=== PATIENT | female | born 1945 | race Caucasian/White ===

== ENCOUNTER → 2016-10-15 | Outpatient (CLI) | payer MEDICARE, BC ==
[2016-10-15 10:17] LABS: HIV 1/2 Antibodies Non-Reactive; HIV-1p24 Antigen Non-Reactive
== END ==
LOC: COL.LAB 09:09
PROVIDERS: Orthopaedic Surgery
DX: Z01.812 Encounter for preprocedural laboratory examination (principal); M17.12 Unilateral primary osteoarthritis, left knee

== ENCOUNTER 2016-10-20 08:51 | Outpatient (RCR) | payer MEDICARE, BC | END 2016-10-22 08:25 | LOC: MKS.ESL.PT 08:51 | DX: Z01.818 Encounter for other preprocedural examination (principal); M17.12 Unilateral primary osteoarthritis, left knee | CPT/HCPCS: G8978-GP; G8979-GP; G8980-GP ==

== ENCOUNTER 2016-12-18 10:30 | Outpatient (RCR) | payer MEDICARE, BC | END 2017-01-25 | LOC: MKS.ESL.PT | DX: Z96.652 Presence of left artificial knee joint (principal) | CPT/HCPCS: G0283-GP; G8978-GP; G8979-GP; G8980-GP ==

== ENCOUNTER → 2017-06-01 | Outpatient (CLI) | payer MEDICARE, BC ==
[2017-06-01 14:38] LABS: CHOLESTEROL RISK RATIO 4.6
== END ==
LOC: COL.LAB 09:35
PROVIDERS: Family Medicine
DX: E78.5 Hyperlipidemia, unspecified (principal)

== ENCOUNTER 2017-07-23 08:45 | Outpatient (RCR) | payer MEDICARE, BC | END 2017-07-23 10:11 | disposition home or self-care (01) | LOC: MKS.ESL.PT 08:45 | DX: M25.511 Pain in right shoulder (principal) | CPT/HCPCS: G8990-GP; G8991-GP; G8992-GP ==

== ENCOUNTER → 2017-08-11 | Outpatient (CLI) | payer MEDICARE, BC ==
[2017-08-11 15:41] LABS: BASO # 0.1 (0.0-0.2); BASO % 0.7 % (0.0-2.0); EOS # 0.3 (0.0-0.7); GRAN # 5.6 (1.4-6.5); GRAN % 69.3 % (42.2-75.2); LYMPH # 1.4 (1.2-3.4); LYMPH % 17.3 % (20.0-51.0); MEAN CELL VOLUME 87 fl (80.0-100.0); MEAN CORPUSCULAR HEMOGLOBIN 29 pg (27.0-31.0); MEAN CORPUSCULAR HGB CONC 34 g/dl (33.0-37.0); MEAN PLATELET VOLUME 10.5 fl (7.4-10.4); MONO # 0.7 (0.1-0.6); MONO % 8.3 % (1.7-9.3); PLATELET COUNT 308 K/mm3 (130-400); RED BLOOD COUNT 3.75 M/mm3 (4.10-5.30); REDCELL DISTRIBUTION WIDTH-CV 13.9 % (11.5-14.5)
[2017-08-11 15:44] LABS: HEMATOCRIT 32.6 % (37.0-47.0)
[2017-08-11 15:52] LABS: CALCIUM 9.8 mg/dL (8.4-10.2); CREATININE, serum 1.12 mg/dL (0.52-1.25); POTASSIUM 4.5 mmol/L (3.4-5.0)
[2017-08-11 16:22] LABS: TSH w REFLEX 1.16 uIU/mL (0.465-4.680)
== END ==
LOC: COL.LAB 09:33
PROVIDERS: Family Medicine
DX: M79.1 Myalgia (principal); R53.83 Other fatigue

== ENCOUNTER → 2017-08-24 | Outpatient (CLI) | payer MEDICARE, BC | LOC: COL.LAB 09:22 | DX: D64.9 Anemia, unspecified (principal) ==

== ENCOUNTER → 2017-10-22 | Outpatient (CLI) | payer MEDICARE, BC ==
[2017-10-22 18:53] LABS: BASO # 0.1 (0.0-0.2); EOS # 0.3 (0.0-0.7); EOS % 3.8 % (0-4.0); GRAN # 5.6 (1.4-6.5); GRAN % 66.8 % (42.2-75.2); HEMOGLOBIN 10.6 g/dl (12.5-16.0); LYMPH # 1.7 (1.2-3.4); LYMPH % 20.1 % (20.0-51.0); MEAN CELL VOLUME 87 fl (80.0-100.0); MEAN CORPUSCULAR HEMOGLOBIN 30 pg (27.0-31.0); MEAN CORPUSCULAR HGB CONC 34 g/dl (33.0-37.0); MEAN PLATELET VOLUME 10.4 fl (7.4-10.4); MONO # 0.6 (0.1-0.6); MONO % 7.7 % (1.7-9.3); PLATELET COUNT 308 K/mm3 (130-400); RED BLOOD COUNT 3.59 M/mm3 (4.10-5.30); REDCELL DISTRIBUTION WIDTH-CV 13.7 % (11.5-14.5)
[2017-10-22 18:54] LABS: HEMATOCRIT 31.3 % (37.0-47.0)
== END ==
LOC: COL.LAB 16:03
PROVIDERS: Family Medicine
DX: R53.83 Other fatigue (principal)

== ENCOUNTER → 2017-11-18 | Outpatient (CLI) | payer MEDICARE, BC ==
[2017-11-18 17:52] LABS: CALCIUM 9.5 mg/dL (8.4-10.2); CREATININE, serum 1.18 mg/dL (0.52-1.25); POTASSIUM 3.7 mmol/L (3.4-5.0)
== END ==
LOC: COL.LAB 15:49
PROVIDERS: Family Medicine
DX: R79.89 Other specified abnormal findings of blood chemistry (principal)

== ENCOUNTER 2018-09-03 20:19 | Emergency (ER) | payer MEDICARE, BC ==
[~2018-09-03] VITALS: Ht 157.5 cm; Wt 85.9 kg
[2018-09-03 20:29] VITALS: TEMP 97.1
[2018-09-03] MEDS ORDERED: WALKER MC (22:09)
[2018-09-03 22:39] VITALS: BP 126/81; PULSE 60
== END 2018-09-03 22:39 | disposition home or self-care (01) ==
LOC: COL.ER 20:19
DX: S76.301A Unspecified injury of muscle, fascia and tendon of the posterior muscle group at thigh level, right thigh, initial encounter (principal); Z96.652 Presence of left artificial knee joint; W22.8XXA Striking against or struck by other objects, initial encounter; Y93.01 Activity, walking, marching and hiking; Y92.009 Unspecified place in unspecified non-institutional (private) residence as the place of occurrence of the external cause

== ENCOUNTER → 2018-09-27 | Outpatient (CLI) | payer MEDICARE, BC ==
[~2018-09-27] MED LIST: WALKER MC
[2018-09-27 18:38] LABS: BASO # 0.1 (0.0-0.2); BASO % 0.8 % (0.0-2.0); EOS # 0.3 (0.0-0.7); EOS % 3.8 % (0-4.0); GRAN # 4.9 (1.4-6.5); GRAN % 63.9 % (42.2-75.2); HEMOGLOBIN 11.3 g/dl (12.5-16.0); LYMPH # 1.7 (1.2-3.4); LYMPH % 22.3 % (20.0-51.0); MEAN CELL VOLUME 88 fl (80.0-100.0); MEAN CORPUSCULAR HEMOGLOBIN 29 pg (27.0-31.0); MEAN CORPUSCULAR HGB CONC 33 g/dl (33.0-37.0); MEAN PLATELET VOLUME 10.5 fl (7.4-10.4); MONO # 0.7 (0.1-0.6); MONO % 8.7 % (1.7-9.3); PLATELET COUNT 290 K/mm3 (130-400); RED BLOOD COUNT 3.85 M/mm3 (4.10-5.30); REDCELL DISTRIBUTION WIDTH-CV 13.7 % (11.5-14.5)
[2018-09-27 18:45] LABS: HEMATOCRIT 33.9 % (37.0-47.0)
[2018-09-27 18:46] LABS: ALBUMIN 4.3 gm/dL (3.5-5.0); BILIRUBIN,TOTAL 1.2 mg/dL (0.0-1.0); CALCIUM 10.6 mg/dL (8.4-10.2); CHOLESTEROL RISK RATIO 4.1; CREATININE, serum 1.14 (0.52-1.25); POTASSIUM 4.1 mmol/L (3.4-5.0); TOTAL PROTEIN 7.6 gm/dL (6.4-8.2)
[2018-09-27 19:16] LABS: THYROID STIMULATING HORMONE 0.805 uIU/mL (0.465-4.680)
== END ==
LOC: ZCOL.LAB 16:36
PROVIDERS: Family Medicine
DX: E78.5 Hyperlipidemia, unspecified (principal); R53.83 Other fatigue; I10 Essential (primary) hypertension

== ENCOUNTER 2018-10-12 10:15 | Outpatient (RCR) | payer MEDICARE, BC | END 2018-12-15 | LOC: MKS.ESL.PT | DX: S76.311A Strain of muscle, fascia and tendon of the posterior muscle group at thigh level, right thigh, initial encounter (principal) ==

== ENCOUNTER → 2019-06-09 | Outpatient (CLI) | payer MEDICARE, BC ==
[2019-06-09 11:02] LABS: BASO # 0.1 (0.0-0.2); BASO % 0.8 % (0.0-2.0); EOS # 0.2 (0.0-0.7); EOS % 3.2 % (0-4.0); GRAN # 4.8 (1.4-6.5); GRAN % 66.6 % (42.2-75.2); HEMOGLOBIN 11.3 g/dl (12.5-16.0); LYMPH # 1.6 (1.2-3.4); LYMPH % 21.5 % (20.0-51.0); MEAN CELL VOLUME 88 fl (80.0-100.0); MEAN CORPUSCULAR HEMOGLOBIN 29 pg (27.0-31.0); MEAN CORPUSCULAR HGB CONC 34 g/dl (33.0-37.0); MEAN PLATELET VOLUME 9.4 fl (7.4-10.4); MONO # 0.5 (0.1-0.6); MONO % 7.3 % (1.7-9.3); PLATELET COUNT 268 K/mm3 (130-400); RED BLOOD COUNT 3.85 M/mm3 (4.10-5.30); REDCELL DISTRIBUTION WIDTH-CV 13.6 % (11.5-14.5)
[2019-06-09 11:06] LABS: ALBUMIN 4.5 gm/dL (3.5-5.0); BILIRUBIN,TOTAL 1.3 mg/dL (0.0-1.0); CALCIUM 9.9 mg/dL (8.4-10.2); CREATININE, serum 1.28 (0.52-1.25); HEMATOCRIT 33.7 % (37.0-47.0); POTASSIUM 4.4 mmol/L (3.4-5.0); TOTAL PROTEIN 7.5 gm/dL (6.4-8.2)
== END ==
LOC: COL.LAB 10:33
PROVIDERS: Family Medicine
DX: R94.5 Abnormal results of liver function studies (principal); D64.9 Anemia, unspecified

== ENCOUNTER 2019-11-11 09:50 | Outpatient (RCR) | payer OTHER | END 2020-02-09 | disposition home or self-care (01) | LOC: WSOH | DX: Z47.89 Encounter for other orthopedic aftercare (principal); M25.571 Pain in right ankle and joints of right foot; M25.572 Pain in left ankle and joints of left foot; I10 Essential (primary) hypertension; Z96.652 Presence of left artificial knee joint; Z90.710 Acquired absence of both cervix and uterus; Y99.0 Civilian activity done for income or pay ==

== ENCOUNTER 2020-04-19 10:25 | Outpatient (RCR) | payer OTHER | END 2020-07-18 | disposition home or self-care (01) | LOC: WSOH | DX: Z47.89 Encounter for other orthopedic aftercare (principal); M25.571 Pain in right ankle and joints of right foot; M25.572 Pain in left ankle and joints of left foot; E78.00 Pure hypercholesterolemia, unspecified; I10 Essential (primary) hypertension; T78.40XA Allergy, unspecified, initial encounter; Z90.710 Acquired absence of both cervix and uterus; Z96.652 Presence of left artificial knee joint; Y99.0 Civilian activity done for income or pay ==

== ENCOUNTER 2021-02-15 22:39 | Emergency (ER) | payer MEDICARE, BC ==
[~2021-02-15] VITALS: Ht 157.5 cm; Wt 79.1 kg
[2021-02-15 22:42] VITALS: TEMP 97.1
[2021-02-15] MEDS ORDERED: PERCOCET 325 MG1 TA2 PO (23:45)
[2021-02-16 00:06] VITALS: BP 184/88; PULSE 80
== END 2021-02-16 00:15 | disposition home or self-care (01) ==
LOC: COL.ER 22:39
DX: S42.202A Unspecified fracture of upper end of left humerus, initial encounter for closed fracture (principal); I10 Essential (primary) hypertension; W01.0XXA Fall on same level from slipping, tripping and stumbling without subsequent striking against object, initial encounter; Y92.009 Unspecified place in unspecified non-institutional (private) residence as the place of occurrence of the external cause
CPT/HCPCS: J3010

== ENCOUNTER 2021-05-10 08:38 | Outpatient (RCR) | payer OTHER ==
[~2021-05-10 08:38] MED LIST changes: +PERCOCET 325 MG1 TA2 PO
== END 2021-05-13 ==
LOC: WSOH
DX: Z47.89 Encounter for other orthopedic aftercare (principal); M25.571 Pain in right ankle and joints of right foot; M25.572 Pain in left ankle and joints of left foot; Y99.0 Civilian activity done for income or pay; E78.00 Pure hypercholesterolemia, unspecified; I10 Essential (primary) hypertension; Z96.652 Presence of left artificial knee joint; Z90.710 Acquired absence of both cervix and uterus

== ENCOUNTER 2021-05-17 15:58 | Outpatient (RCR) | payer MEDICARE, BC | END 2021-06-10 | disposition home or self-care (01) | LOC: MKS.ESL.PT | DX: M25.512 Pain in left shoulder (principal); Z96.612 Presence of left artificial shoulder joint ==

== ENCOUNTER → 2021-05-29 | Outpatient (CLI) | payer MEDICARE, BC | LOC: MC.RAD 04-08 13:00 | DX: Z12.31 Encounter for screening mammogram for malignant neoplasm of breast (principal) ==

== ENCOUNTER 2021-06-12 13:00 | Outpatient (RCR) | payer MEDICARE, BC | END 2021-07-11 | LOC: MKS.ESL.PT | DX: M25.512 Pain in left shoulder (principal) ==

== ENCOUNTER 2021-07-10 15:30 | Outpatient (RCR) | payer MEDICARE | END 2021-07-11 | disposition still patient (30) | LOC: MKS.ESL.PT | DX: M25.512 Pain in left shoulder (principal) ==

== ENCOUNTER 2021-08-01 14:30 | Outpatient (RCR) | payer MEDICARE, BC | END 2021-08-01 15:11 | disposition home or self-care (01) | LOC: MKS.ESL.PT 14:30 | DX: M25.512 Pain in left shoulder (principal); Z96.612 Presence of left artificial shoulder joint ==

== ENCOUNTER 2021-08-08 10:54 | Outpatient (RCR) | payer MEDICARE, BC | END 2021-08-10 | LOC: MKS.ESL.PT | DX: R42 Dizziness and giddiness (principal) ==

== ENCOUNTER 2021-08-20 11:48 | Emergency (ER) | payer MEDICARE, BC ==
[~2021-08-20] VITALS: Ht 157.5 cm; Wt 80.9 kg
[2021-08-20 12:00] VITALS: BP 123/68; PULSE 102; TEMP 97.9
== END 2021-08-20 13:32 | disposition home or self-care (01) ==
LOC: COL.ER 11:48
DX: S63.502A Unspecified sprain of left wrist, initial encounter (principal); Z87.891 Personal history of nicotine dependence; W01.0XXA Fall on same level from slipping, tripping and stumbling without subsequent striking against object, initial encounter; Y93.02 Activity, running

== ENCOUNTER 2021-08-22 13:45 | Outpatient (RCR) | payer MEDICARE, BC | END 2021-09-03 14:19 | disposition home or self-care (01) | LOC: MKS.ESL.PT 13:45 | DX: R42 Dizziness and giddiness (principal) ==

== ENCOUNTER 2022-06-30 12:00 | Inpatient (IN) | payer MEDICARE, BC ==
[2022-06-30] VITALS (11 sets, daily range): BP systolic 108–164; BP diastolic 52–90; PULSE 44–89; TEMP 97.4–98.6
[~2022-06-30] VITALS: Ht 157.5 cm; Wt 80.3 kg
[2022-06-30] MEDS ORDERED: NAPROSYN500 MG PO (12:26)
[2022-06-30] MEDS ORDERED: HCTZ 25MG TAB25 MG PO (12:26)
[2022-06-30] MEDS ORDERED: LIPITOR 40MG TA40 MG PO (12:26)
[2022-06-30] MEDS ORDERED: COZAAR 25MG25 MG/TAB PO (12:26)
[2022-06-30] MEDS ORDERED: ASPIRIN 81M81 MG/TA2 PO (12:27)
[2022-06-30] MEDS ORDERED: [UNRECOGNIZED DRUG - OTHER] (12:27)
[2022-06-30] MEDS ORDERED: ZYRTEC 10MG10 MG PO (12:27)
[2022-06-30] MEDS ORDERED: CALCIUM 600 MG1 EAC2 PO (12:28)
[2022-06-30 12:46] LABS: BASO # 0.1 K/mm3 (0.0-0.2); BASO % 0.6 % (0.0-2.0); EOS # 0.2 K/mm3 (0.0-0.7); EOS % 1.8 % (0.0-4.0); GRAN # 6.1 K/mm3 (1.4-6.5); GRAN % 72.9 % (42.2-75.2); HEMATOCRIT 32.4 % (37.0-47.0); HEMOGLOBIN 11.4 g/dl (12.5-16.0); LYMPH # 1.4 K/mm3 (1.2-3.4); LYMPH % 16.9 % (20.0-51.0); MEAN CELL VOLUME 84 fl (80.0-100.0); MEAN CORPUSCULAR HEMOGLOBIN 29 pg (27-31); MEAN CORPUSCULAR HGB CONC 35 g/dl (33.0-37.0); MEAN PLATELET VOLUME 9.5 fl (7.4-10.4); MONO # 0.6 K/mm3 (0.1-0.6); MONO % 7.4 % (1.7-9.3); PLATELET COUNT 282 K/mm3 (130-400); RED BLOOD COUNT 3.88 M/mm3 (4.10-5.30); REDCELL DISTRIBUTION WIDTH-CV 13.2 % (11.5-14.5)
[2022-06-30 12:55] LABS: PARTIAL THROMBOPLASTIN TIME 32.7 SECONDS (26.0-37.0)
[2022-06-30 13:03] LABS: BILIRUBIN,TOTAL 0.9 mg/dL (0.2-1.2); CALCIUM 10.7 mg/dL (8.4-10.2); CREATININE, serum 1.1 mg/dL (0.57-1.11); POTASSIUM 4.2 mmol/L (3.5-4.5); TOTAL PROTEIN 6.9 gm/dL (6.2-8.1)
[2022-06-30 13:14] LABS: TROPONIN-I 0.689 ng/mL (0.00-0.033)
--- NOTE | 2022-06-30 15:07 | NUR ---
REPORT RECEIVED FROM MIL WATERMAN. PT GOING TO COMPLIANCE LEAD PRIOR TO COMING TO 358.
--- NOTE | 2022-06-30 15:41 | NUR ---
See merge for all medication, assesment, intervention, and vital sign times.
--- NOTE | 2022-06-30 16:15 | NUR ---
PT ADMITTED FROM TALENT ACQUISITION PROGRAM MANAGER. PT IS AXOX4. RIGHT RADIAL SITE C/D/I WITH TR BAND INFLATED. PT ORIENTED TO ROOM AND UNIT. CALL LIGHT GIVEN AND PT INSTRUCTED TO CALL WITH ALL NEEDS. 1630 CALLED TO CLARIFY HEPARIN DRIP ORDERS. ORDER TO RESTART HEPARIN 2 HOURS AFTER HEMOSTASIS OF RIGHT RADIAL SITE. NO BOLUS.
--- NOTE | 2022-06-30 19:45 | NUR ---
Sitting up in chair- VSS, Right radial with 2cc air released, no bleeding noted. Has 1/2NS infusing but will DC at this swetha per order,, Tele on SB at 50/min,,did give a sandwich for supper at this time- no other requests.
--- NOTE | 2022-06-30 22:30 | NUR ---
Last of the air removed from radial band-- will give it another hour before taking the band off and applying bandaid- no bleeding noted. VSS
--- NOTE | 2022-06-30 23:22 | NUR ---
Radial band removed- no bleeding at site-- bandaid applied, some bruising noted- site soft.
--- NOTE | 2022-07-01 01:35 | NUR ---
Nsg order in chart to restart heparing drip, no bolus after right radial band has been off for 2 hrs and no bleeding-- 2 hrs is up,r/radial site looks good, bandaid dry, no bleeding. Heparin drip restarted at 950units/hr{9.5cc/hr} as was previously, next hepxa at 0730 { did call Lamar HOUGH to take heparin drip order off hold}
[2022-07-01 03:48] VITALS: BP 122/47; PULSE 92; TEMP 98.3
--- NOTE | 2022-07-01 05:33 | NUR ---
Has been sleeping for the past 2-3 hours,, right radial site with bandaid-dry and intact,soft. Heparin drip at 9.5cc/hr, next hepxa at 0730.
--- NOTE | 2022-07-01 07:00 | NUR ---
PT RESTING IN BED. PT IS AXOX4. PT HAS HEPARIN RUNNING. PT HAS CALL LIGHT AND INSTRUCTED TO CALL WITH ALL NEEDS. BED ALARM ACTIVE.
[2022-07-01 07:30] VITALS: BP 142/64; PULSE 59; TEMP 98.4
--- NOTE | 2022-07-01 07:35 | NUR ---
Pt AOx4. Shift assessment complete. Tele on. HR regular. Heprin drip infusing per protocol to Lt hand. Lt site patent. Rt hand INT site intact/ no redness. Denies any pain.
[2022-07-01 07:45] LABS: BASO # 0.1 K/mm3 (0.0-0.2); BASO % 0.9 % (0.0-2.0); EOS # 0.3 K/mm3 (0.0-0.7); EOS % 4.1 % (0.0-4.0); GRAN # 5.2 K/mm3 (1.4-6.5); HEMOGLOBIN 11.1 g/dl (12.5-16.0); LYMPH # 1.4 K/mm3 (1.2-3.4); LYMPH % 17.8 % (20.0-51.0); MEAN CELL VOLUME 87 fl (80.0-100.0); MEAN CORPUSCULAR HEMOGLOBIN 29 pg (27-31); MEAN CORPUSCULAR HGB CONC 33 g/dl (33.0-37.0); MEAN PLATELET VOLUME 9.6 fl (7.4-10.4); MONO # 0.6 K/mm3 (0.1-0.6); MONO % 7.8 % (1.7-9.3); PLATELET COUNT 289 K/mm3 (130-400); RED BLOOD COUNT 3.82 M/mm3 (4.10-5.30); REDCELL DISTRIBUTION WIDTH-CV 13.5 % (11.5-14.5)
[2022-07-01 07:46] LABS: HEMATOCRIT 33.3 % (37.0-47.0)
[2022-07-01 07:50] LABS: CALCIUM 10.1 mg/dL (8.4-10.2); CHOLESTEROL RISK RATIO 2.8; CREATININE, serum 1.22 mg/dL (0.57-1.11); MAGNESIUM 1.7 mg/dL (1.6-2.6); POTASSIUM 4.1 mmol/L (3.5-4.5)
[2022-07-01 08:11] LABS: TSH w REFLEX 1.901 uIU/mL (0.350-4.940)
--- NOTE | 2022-07-01 10:06 | NUR ---
Initial visit; Patient states she is doing well and asked that User Interface Engineer keep her in her prayers. Diane said she would call her holiness and let them know she would be in the hospital another day so they could visit her if they come in today.
--- NOTE | 2022-07-01 10:54 | NUR ---
GONZALO RN WITH CARDIOLOGY NOTIFIED OF ELEVATED TROPONINS.
--- NOTE | 2022-07-01 11:16 | NUR ---
Extruder Operator met with PAtient at bedside to conduct Care Managment Assessment and discuss discharge planning. PAtient lives in [place], [place] alone and is established with GIANLUCA Agee for PCP. Patient is covered by [facility] and [facility] for insurance. Patient utilizes a cane at home and has the supports of her daughter Paula P: [phone] whom lives out of state as well as her [id number] Evi Marshall who is local to [place], [place]. PAtient has a DPOA designating her daugher as her agent. Patient reports to be independent with her ADLs/IADLs prior to admission and is intending on discharging home when medically cleared. Discharge Plan: Home
--- NOTE | 2022-07-01 11:31 | NUR ---
[facility] Pt has steady gait. Tolerates activity well.
[2022-07-01 12:00] VITALS: BP 136/64; PULSE 55; TEMP 97.8
--- NOTE | 2022-07-01 15:06 | NUR ---
RE:Cardiac Rehab - diagnosis of NSTEMI/medical management. Staff will continue to follow patient. Referral and education as necessary.
[2022-07-01 16:00] VITALS: BP 129/56; PULSE 64; TEMP 97.7
[2022-07-01 20:25] VITALS: BP 146/70; PULSE 52; TEMP 98
[2022-07-02 00:20] VITALS: BP 146/77; PULSE 95; TEMP 97.6
[2022-07-02 04:00] VITALS: BP 133/64; PULSE 55; TEMP 98.2
[2022-07-02 07:08] LABS: BASO # 0.1 K/mm3 (0.0-0.2); EOS # 0.3 K/mm3 (0.0-0.7); EOS % 4.9 % (0.0-4.0); GRAN % 65.2 % (42.2-75.2); HEMOGLOBIN 10.4 g/dl (12.5-16.0); LYMPH # 1.2 K/mm3 (1.2-3.4); LYMPH % 19.4 % (20.0-51.0); MEAN CELL VOLUME 87 fl (80.0-100.0); MEAN CORPUSCULAR HEMOGLOBIN 29 pg (27-31); MEAN CORPUSCULAR HGB CONC 33 g/dl (33.0-37.0); MEAN PLATELET VOLUME 9.9 fl (7.4-10.4); MONO # 0.6 K/mm3 (0.1-0.6); MONO % 9.2 % (1.7-9.3); PLATELET COUNT 277 K/mm3 (130-400); RED BLOOD COUNT 3.62 M/mm3 (4.10-5.30); REDCELL DISTRIBUTION WIDTH-CV 13.2 % (11.5-14.5)
[2022-07-02 07:13] LABS: HEMATOCRIT 31.3 % (37.0-47.0)
[2022-07-02 07:17] LABS: CALCIUM 9.6 mg/dL (8.4-10.2); CREATININE, serum 1.12 mg/dL (0.57-1.11); POTASSIUM 3.9 mmol/L (3.5-4.5)
[2022-07-02 07:45] VITALS: BP 157/67; PULSE 57; TEMP 98
[2022-07-02] MEDS ORDERED: LIPITOR 80MG80 MG PO (08:46)
[2022-07-02] MEDS ORDERED: BETAPACE 80MG80 MG PO (08:46)
--- NOTE | 2022-07-02 09:46 | NUR ---
Assessmnet complete. A/O x3. Sitting up in chair. Heparin infusing at 8.5ml/hr to LFA without s/s complications. Dr. Diallo in to speak to patient re: cath procedure scheduled for today. Pt wishes to wait until Dr. Diallo speaks to granddaughter Samara before signing the consent. Denies pain or needs at this time. Coordinating care with student nurseCassidy.
--- NOTE | 2022-07-02 10:46 | NUR ---
Pt AOx4. Shift assessment complete. Tele on. HR regular. Heprin IV infusing per protocol L hand, patent site. R hand INT, no redness/drainage. Pt states 4/10 siatic pain, ice packed applied, states pain relieved. NPO since midnight.
[2022-07-02 11:32] VITALS: BP 157/67; PULSE 53; TEMP 98.7
--- NOTE | 2022-07-02 12:09 | NUR ---
Ultrasound at bedside completing exam.
[2022-07-02 13:50] VITALS: BP 134/83; PULSE 54; TEMP 98
--- NOTE | 2022-07-02 14:20 | NUR ---
Pt to brush clearing laborer via bed. Heparin, Mg+ and K+ placed on standby per brush clearing laborer RN.
--- NOTE | 2022-07-02 15:29 | NUR ---
Discharge instructions reviewed with pt- she verbalizes understanding. INT to RH and LH d/c'd with cath tip intact. Tele d/c'd. Pt escorted to private vehicle via w/c and discharged home with granddaughter.
[2022-07-07] MEDS ORDERED: COLLAGEN 15001 EACH PO (10:34)
[2022-07-07] MEDS ORDERED: COMPLETE MULTI1 TAB PO (10:34)
[2022-07-07] MEDS ORDERED: CALCIUM 600MG+D1 TAB PO (10:34)
[2022-07-07] MEDS ORDERED: ELIQUIS 5MG PO (10:37)
== END 2022-07-02 15:31 | disposition home or self-care (01) | DRG 282 ==
LOC: COL.ER 12:00 → MEDICAL 13:28
PROVIDERS: Family Medicine; Physician Assistant; ADMIT Student in an Organized Health Care Education/Training Program
PROC: 4A023N7 Measurement of Cardiac Sampling and Pressure, Left Heart, Percutaneous Approach (ICD-10-PCS; principal; 2022-06-30)
PROC: B2111ZZ Fluoroscopy of Multiple Coronary Arteries using Low Osmolar Contrast (ICD-10-PCS; 2022-06-30)
DX: I48.91 Unspecified atrial fibrillation (principal); I21.4 Non-ST elevation (NSTEMI) myocardial infarction; Z96.652 Presence of left artificial knee joint; G89.29 Other chronic pain; M54.2 Cervicalgia; M25.519 Pain in unspecified shoulder; Z96.611 Presence of right artificial shoulder joint; I12.9 Hypertensive chronic kidney disease with stage 1 through stage 4 chronic kidney disease, or unspecified chronic kidney disease; N18.1 Chronic kidney disease, stage 1; F41.9 Anxiety disorder, unspecified; M54.30 Sciatica, unspecified side; E78.5 Hyperlipidemia, unspecified; E83.52 Hypercalcemia; D64.9 Anemia, unspecified; I25.10 Atherosclerotic heart disease of native coronary artery without angina pectoris; I08.1 Rheumatic disorders of both mitral and tricuspid valves; Z23 Encounter for immunization; Z79.82 Long term (current) use of aspirin; Z87.891 Personal history of nicotine dependence; Z88.8 Allergy status to other drugs, medicaments and biological substances; Z90.710 Acquired absence of both cervix and uterus
CPT/HCPCS: OP; G0378; J1644; J2250; J3010; J3475; J7120